=== PATIENT | male | born 2005 | race Caucasian/White ===

== ENCOUNTER 2024-12-12 17:24 | Emergency (ER) | payer BC ==
[2024-12-12] MEDS ORDERED: Sodium Chloride 0.9% 10 ML Syringe FLUSH PRN (17:27)
[2024-12-12 17:38] LABS: BASOPHILS ABSOLUTE AUTO 0.02 K/uL (0.00-0.20); BASOPHILS PERCENT AUTO 0.3 % (0.0-2.0); EOSINOPHILS ABSOLUTE AUTO 0.07 K/uL (0.00-0.50); EOSINOPHILS PERCENT AUTO 1.1 % (0.0-5.0); IMMATURE GRAN ABSOLUTE AUTO 0.01 10^3/uL (0.00-0.04); IMMATURE GRAN PERCENT AUTO 0.2 % (0.0-0.4); LYMPHOCYTES ABSOLUTE AUTO 1.71 K/uL (0.50-3.50); LYMPHOCYTES PERCENT AUTO 26.2 % (10.0-50.0); MONOCYTES ABSOLUTE AUTO 0.39 K/uL (0.00-1.00); MONOCYTES PERCENT AUTO 6.0 % (2.0-14.0); NEUTROPHILS ABSOLUTE AUTO 4.32 K/uL (1.40-7.00); NEUTROPHILS PERCENT AUTO 66.2 % (45.0-80.0); PLATELET COUNT,PLT 255 K/uL (150-350); RED BLOOD CELL COUNT 5.44 M/uL (4.33-5.41); RED CELL DISTRIBUTION WIDTH 11.5 % (11.2-14.1); WHITE BLOOD CELL COUNT,WBC 6.5 K/uL (4.0-10.2)
[2024-12-12 17:57] LABS: ALANINE AMINOTRANSFERASE,ALT 87 U/L (12-78); ASPARTATE AMNIOTRANSFERASE,AST 28 U/L (15-37); BILIRUBIN TOTAL 0.6 mg/dL (0.2-1.0); BLOOD UREA NITROGEN,BUN 13 mg/dL (7-18); CARBON DIOXIDE,CO2 27.8 mmol/L (21.0-32.0); CHLORIDE,CL 104 mmol/L (98-107); CREATININE 1.27 mg/dL (0.51-1.17); ESTIMATED GFR 82 mL/min (>=60); GLUCOSE RANDOM 101 mg/dL (70-99); POTASSIUM,K 3.5 mmol/L (3.5-5.1); PROTEIN TOTAL,TP 8.3 g/dL (6.4-8.2); SODIUM,NA 144 mmol/L (136-145)
[2024-12-12] MEDS: Take Home: predniSONE 20 MG, 4 Tab Pack PO ONE (19:00)
== END 2024-12-12 19:07 | disposition home or self-care (01) ==
LOC: LL.ED 17:24
DX: R07.89 Other chest pain (principal); E86.0 Dehydration
CPT/HCPCS: 36415; 71045; 80053; 83735; 84484; 85025; 85379; 93005; 93010; 99284; 99285; A9270-GY; J7512